=== PATIENT | male | born 1980 | race African-American/Black ===

== ENCOUNTER 2017-05-08 00:38 | Emergency (ER) | payer OTHER ==
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
[2017-05-08] MEDS ORDERED: SODIUM CHLORIDE 1,000 ML IV STA (01:11)
[2017-05-08] MEDS ORDERED: ACETAMINOPHEN 1000 MG/100 ML VIAL (NON FORMULARY) IVPB ONE (01:28)
[2017-05-08 01:29] LABS: BASOPHIL 0.5 % (0-2.0); EOSINOPHIL 0.7 % (0-4.5); MCHC 32.3 g/dl (32.0-35.9); MEAN CELL VOLUME 80.5 fl (80-96); MEAN PLT VOLUME 8.8 fl (7.5-11.1); NEUTROPHILS 50.9 % (42.8-82.8); PLATELET COUNT 171 K/MM3 (134-434); RDW 16.1 % (11.9-15.9); WHITE BLOOD COUNT 4.5 K/mm3 (4.0-10.0)
[2017-05-08] MEDS ORDERED: ACETAMINOPHEN INJECTION 100 ML IVPB ONE (01:30)
[2017-05-08] MEDS ORDERED: morphine CARPU-JECT 2 MG/1 ML DISP.SYRIN IVPUSH ONE (01:48)
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
[2017-05-08 01:55] LABS: ALBUMIN 3.9 g/dl (3.4-5.0); ANION GAP 11 (8-16); CALCIUM 9.2 mg/dL (8.5-10.1); CO2 28 mmol/L (21-32); CREATININE 1.3 mg/dL (0.7-1.3); GLUCOSE,RANDOM 123 mg/dL (74-106); SGOT/AST 18 U/L (15-37); SGPT/ALT 20 U/L (12-78)
[2017-05-08 01:57] LABS: ALK PHOS 54 U/L (45-117); BILIRUBIN,TOTAL 0.9 mg/dL (0.2-1.0); TOT PROT 7.1 g/dl (6.4-8.2)
[2017-05-08] MEDS ORDERED: morphine CARPU-JECT 4 MG/1 ML DISP.SYRIN ONE (02:28)
[2017-05-08 03:38] VITALS: TEMP 98.7; BMI 21.9
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
[2017-05-08 10:46] VITALS: BP 125/62; PULSE 75
--- NOTE | 2017-05-10 10:49 | EKG ---
Test Reason : Blood Pressure : / mmHG Vent. Rate : 075 BPM Atrial Rate : 075 BPM P-R Int : 142 ms QRS Dur : 086 ms QT Int : 378 ms P-R-T Axes : 069 078 031 degrees QTc Int : 422 ms NORMAL SINUS RHYTHM WITH SINUS ARRHYTHMIA NORMAL ECG WHEN COMPARED WITH ECG OF 07-OCT-2016 14:39, NO SIGNIFICANT CHANGE WAS FOUND Confirmed by JUANA FRASER MD ([id number]) on 05/10/2017 10:48:33 AM Referred By: Confirmed By:JUANA FRASER MD
== END 2017-05-08 10:48 | disposition home or self-care (01) ==
LOC: JER 00:38
PROC: 2W3MX1Z Immobilization of Left Lower Extremity using Splint (ICD-10-PCS; principal; 2017-05-08)
DX: G40.89 Other seizures (principal)
CPT/HCPCS: 36415; 70450-TC; 71010-TC; 73560-TC-LT; 80053; 85025; 93005; 93010; 99283-25

== ENCOUNTER 2017-06-01 05:06 | Day surgery (SDC) | payer OTHER ==
[2017-05-28 11:07] VITALS: BMI 23.8
--- NOTE | 2017-06-01 11:37 | HP ---
Satellite [facility] - Chief Complaint Chief Complaint: left knee pain/instability - Past Medical History Allergies/Adverse Reactions: Allergies Allergy/AdvReac Type Severity Reaction Status Date / Time No Known Allergies Allergy Verified 05/08/17 04:46 - Current Medications Current Medications: Home Medications Medication Instructions Recorded Oxycodone HCl/Acetaminophen 1 - 2 tab PO Q6H #50 tab MDD 8 06/01/17 [Percocet 5-325 mg Tablet -] Satellite Physical Exam - Physical Examination Vital Signs: Vital Signs Period Temp Pulse Resp BP Sys/Montoya Pulse Ox Last 24 Hr 98 General Appearance: Well Nourished, Well Developed, Alert & Oriented x3 ENT: Clear Lung: Normal air movement Heart: Regular rate & rhythm Extremities: Other (left knee- healed surgical scars, + swelling, + nikolai, + ant draw. + pivot, nvi MRI + re-rupture ACL) Neurological: Intact, Alert, Oriented Satellite Impression/Plan - Impression/Plan Impression: left knee ACL re-rupture- previous ACL reconstruction Operative Procedure: left knee arthroscopy with ACL reconstruction using allograft Date to be Performed: 06/01/17
[2017-06-01] MEDS ORDERED: ROPIVACAINE HCL 0.5% 30ML VIAL ONE (11:40)
[2017-06-01] MEDS ORDERED: MIDAZOLAM HCL 2 MG/2 ML SINGLE DOSE VIAL ONE ×2 (11:41)
[2017-06-01] MEDS ORDERED: ONDANSETRON 4 MG/2 ML VIAL ONE (12:21)
[2017-06-01] MEDS ORDERED: KETOROLAC TROMETHAMINE 30 MG/1 ML VIAL ONE (12:21)
[2017-06-01] MEDS ORDERED: DEXAMETHASONE SOD PHOSPHATE 4 MG/1 ML VIAL ONE (12:21)
[2017-06-01] MEDS ORDERED: ceFAZolin SODIUM 1 GM VIAL ONE ×2 (12:21→17:21)
[2017-06-01] MEDS ORDERED: LIDOCAINE HCL/PF 2% SDV 5ML VIAL ONE (12:21)
[2017-06-01] MEDS ORDERED: ceFAZolin SODIUM 1 GM VIAL IVPB ONE (12:44)
--- NOTE | 2017-06-01 13:59 | OP ---
Operative Note - Note: Operative Date: 06/01/17 ([facility]) Pre-Operative Diagnosis: left knee acl rupture Operation: left knee arthroscopy with revision ACL reconstruction using allograft, PMM Implants: arthrex graftlink Post-Operative Diagnosis: Same as Pre-op Surgeon: Gurdeep Tucker Rolled Glass Crosscutter: Shay Ramírez Anesthesiologist/ADDRESS CHANGE CLERK: Toby Madison Anesthesia: General, Local Specimens Removed: shavings Estimated Blood Loss (mls): 5 Operative Report Dictated: Yes
[2017-06-01] MEDS ORDERED: MEPERIDINE HCL CARPU-JECT 25 MG/1 ML DISP.SYRIN ONE (14:01)
[2017-06-01] MEDS ORDERED: PROMETHAZINE HCL 25 MG/1 ML VIAL IVPUSH PRN (14:07)
[2017-06-01] MEDS ORDERED: ONDANSETRON 4 MG/2 ML VIAL IVPUSH PRN (14:07)
[2017-06-01] MEDS ORDERED: LACTATED RINGERS SOLUTION 1,000 ML IV SCH (14:15)
[2017-06-01] MEDS ORDERED: HYDROmorphone HCL CARPU-JECT 2 MG/1 ML DISP.SYRIN ONE (14:17)
[2017-06-01] MEDS: HYDROmorphone HCL CARPU-JECT 1 MG/1 ML DISP.SYRIN IVPUSH PRN ×2 (14:25→14:30)
[2017-06-01] MEDS ORDERED: CEFAZOLIN 1 GM in DEXTROSE 5%-WATER - 50 ML IVPB ONE (14:31)
--- NOTE | 2017-06-01 15:18 | OP ---
DATE OF OPERATION: 06/01/2017 PREOPERATIVE DIAGNOSIS: Recurrent left anterior cruciate ligament tear. POSTOPERATIVE DIAGNOSES: Recurrent left anterior cruciate ligament tear. Lateral meniscus tear. PROCEDURES: Arthroscopic left anterior cruciate ligament reconstruction with allograft and partial lateral meniscectomy. SURGICAL ATTENDING: Gurdeep Tucker MD CRAWLER TRACTOR OPERATOR: SIMONE Hernandez ANESTHESIA: Regional and general. CLOSURE: A GraftLink for the ACL and 3-0 nylon for skin. ESTIMATED BLOOD LOSS: Negligible. COMPLICATIONS: None. CONDITION: Stable. DESCRIPTION OF PROCEDURE: The patient was taken to the operating room on June 01, 2017. General and regional anesthesia was administered by the anesthesiologist. IV Kefzol was administered prophylactically prior to the case. The left lower extremity was prepped and draped in the usual sterile fashion. The superomedial and medial lateral infrapatellar portal sites were made with a 15 blade blunt trocar. Outflow portal was superomedial. Working portal was inframedially and the scope was infralaterally. The scope was placed up into the pouch. The pouch was visualized to be clean. The medial and lateral gutters were visualized to be clean. The undersurface of the patella and trochlea were visualized to be intact with valgus stress on the knee. The medial compartment was entered. The medial meniscus was visualized, probed, and found to be intact. The medial femoral condyle was run and found to be intact, as was the medial tibial plateau. In the figure-of-4 position, the lateral compartment was entered. The lateral meniscus was found to have a complex tear of its midportion. This was debrided back to more stable meniscal tissue with an endoscopic biter and arthroscopic shaver. Lateral femoral condyle was run and found to be intact, as was the lateral tibial plateau. At 90 degrees, the ACL was visualized to be completely torn. It was debrided. A sufficient notchplasty was performed. I performed the procedure to gain acces to the posterior aspect of the notch. The previous femoral screw was found to be in place, but was not impinging on anything. It was left in situ. An [id number] guide was used to drill from the anterolateral aspect of the lateral femoral condyle into the knee joint just in the posterolateral aspect of the notch. The FlipCutter was then used to drill a 10-mm tunnel retrograde, leaving the lateral cortex intact. All bone fragments were removed. A FiberStick was used to pass a shuttle suture down this tunnel and exiting the anterolateral portal. The tibial guide was then used to drill a wire from the anteromedial proximal tibia into the knee just anterior to the PCL. The FlipCutter was used to make a 10-mm tunnel, leaving the lateral cortex intact. In this region was found a retained wire from the previous surgery. It was imbedded in the bone. The part that was impinging on the surgery was broken off and the rest of the wire was left in situ. A shuttle suture was placed down this tunnel, exiting the anteromedial portal. The shuttle sutures were then used to deploy the GraftLink into the knee through the anteromedial portal, pulling the femoral limb up into the femoral tunnel and the tibial limb into the tibial tunnel. The button engaged lateral cortex of the femur and then the graft was toggled up into place. The femoral tunnel was then toggled down with a button on the anteromedial proximal tibia in extension. The knee was taken through a range of motion and found to have good stability throughout. The toggle sutures were cut flush. The portals were all closed with 3-0 nylon, as were the stab incisions. A sterile pressure dressing was applied. The patient was awakened from anesthesia and transferred to the recovery room in stable condition. GURDEEP TUCKER M.D. [id number]
[2017-06-01 17:33] VITALS: TEMP 97.9
[2017-06-01 19:44] VITALS: BP 136/80; PULSE 71
--- NOTE | 2017-06-05 13:49 | PATH ---
Surgical Pathology Report Patient Name: TERRIE [facility]. Rec. #: [id number] /Age/Gender: 1980 (Age: 37) / M Account: [id number] Location: [facility] SUR[facility]ICAL Taken: 06/01/2017 Received: 06/04/2017 Reported: 06/05/2017 Physicians: Gurdeep Tucker M.D. Specimen(s) Received SHAVINGS Clinical History Left ACL tear Final Diagnosis KNEE, LEFT, ARTHROSCOPIC SHAVING: FIBROCARTILAGE WITH MYXOID DEGENERATIVE CHANGES, ALONG WITH PORTIONS OF SYNOVIUM, BONE AND HYALINE CARTILAGE. Electronically Signed Agusto Gonzalez M.D. Gross Description Received in formalin, labeled "left knee shavings," is a 5.0 x 3.5 x 0.6 cm. aggregate of morris-yellow soft tissue fragments. A medical billing representative portion is submitted in one cassette. /06/04/201706/04/2017
== END 2017-06-01 19:10 | disposition home or self-care (01) ==
LOC: JASU-SURG 05:06
PROVIDERS: ATTEND Orthopaedic Surgery
PROC: 0MUP4JZ Supplement Left Knee Bursa and Ligament with Synthetic Substitute, Percutaneous Endoscopic Approach (ICD-10-PCS; 2017-06-01)
PROC: 0SBD4ZZ Excision of Left Knee Joint, Percutaneous Endoscopic Approach (ICD-10-PCS; principal; 2017-06-01 12:30)
DX: S83.512A Sprain of anterior cruciate ligament of left knee, initial encounter (principal); S83.282A Other tear of lateral meniscus, current injury, left knee, initial encounter; X58.XXXA Exposure to other specified factors, initial encounter; Y93.9 Activity, unspecified; Y92.9 Unspecified place or not applicable; Y99.9 Unspecified external cause status
CPT/HCPCS: 88304-TC; 94760

== ENCOUNTER 2017-12-04 04:46 | Emergency (ER) | payer OTHER ==
--- NOTE | 2017-12-04 04:47 | PDOC ---
History of Present Illness - General Chief Complaint: Chest Pain Stated Complaint: SPASM Time Seen by Provider: 12/04/17 04:46 History Source: Patient - History of Present Illness Initial Comments: 12/04/17 05:15 37-year-old male complaining of chest pain, fast breathing with some numbness and tingling to bilateral hands. Patient reports that he woke up with the symptoms. Patient reports he has no chest pain at this time, but continues with tingling feeling to bilateral hands. One prior episode similar to this and patient was seen at [facility] with the negative workup. reports usual stress at work. 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 12/04/17 06:30 Past History - Past Medical History Allergies/Adverse Reactions: Allergies Allergy/AdvReac Type Severity Reaction Status Date / Time No Known Allergies Allergy Verified 12/04/17 04:57 Anemia: No Asthma: No Cancer: No Cardiac Disorders: No CVA: No COPD: No CHF: No Dementia: No Diabetes: No GI Disorders: No Disorders: No HTN: No Hypercholesterolemia: No Liver Disease: No Seizures: Yes (last month "drinking") Thyroid Disease: No - Surgical History Orthopedic Surgery: Yes (left ACL) - Suicide/Smoking/Psychosocial Hx Smoking History: Former smoker Have you smoked in the past 12 months: No If you are a former smoker, when did you quit?: 10 years Hx Alcohol Use: No Drug/Substance Use Hx: No Substance Use Type: None Hx Substance Use Treatment: No Cardiac Specific PMH - Complaint Specific PMHX Pacemaker: No Review of Systems - Review of Systems Able to Perform ROS?: Yes Is the patient limited [place] proficient: No Cardiac (ROS): Yes: Chest Pain ABD/GI: No: Symptoms Reported, See HPI, Abdominal Distended, Abd. Pain w/ defecation, Blood Streaked Bowels, Constipated, Diarrhea, Difficulty Swallowing , Nausea, Poor Appetite, Poor Fluid Intake, Rectal Bleeding, Vomiting, Indigestion, Abdominal cramping, Tarry Stools, Other *Physical Exam - Vital Signs Last Vital Signs Temp Pulse Resp BP Pulse Ox 98.1 F 59 L 18 122/85 100 12/04/17 04:53 12/04/17 04:53 12/04/17 04:53 12/04/17 04:53 12/04/17 04:53 - Physical Exam General Appearance: Yes: Appropriately Dressed Respiratory/Chest: positive: Lungs Clear, Normal Breath Sounds. negative: Chest Tender Cardiovascular: positive: Regular Rhythm, Regular Rate Gastrointestinal/Abdominal: positive: Normal Bowel Sounds, Soft Extremity: positive: Normal Capillary Refill, Normal Inspection, Normal Range of Motion Integumentary: positive: Normal Color, Dry Neurologic: positive: Fully Oriented, Alert ED Treatment Course - LABORATORY CBC & Chemistry Diagram: 12/04/17 05:25 12/04/17 05:25 - ADDITIONAL ORDERS Additional order review: Laboratory Results 12/04/17 12/04/17 05:25 05:25 PT with INR 11.20 INR 0.99 Sodium 142 Potassium 4.1 Chloride 104 Carbon Dioxide 27 Anion Gap 11 BUN 19 H D Creatinine 1.3 Creat Clearance w eGFR > 60 Random Glucose 93 Calcium 8.9 Magnesium 2.4 Total Bilirubin 0.7 D AST 16 ALT 12 Alkaline Phosphatase 54 Creatine Kinase 430 H Troponin I < 0.02 Total Protein 6.9 Albumin 3.6 12/04/17 05:25 RBC 5.33 MCV 79.8 L MCHC 32.1 RDW 16.0 H MPV 8.8 Neutrophils % 59.0 Lymphocytes % 30.9 Monocytes % 8.6 Eosinophils % 0.9 Basophils % 0.6 - RADIOLOGY Radiology Studies Ordered: Category Date Time Status CHEST PA & LAT [RAD] Stat Radiology 12/04/17 05:12 Taken - Medications Given in the ED: ED Medications Discontinued Medications Generic Name Dose Route Start Last Admin Trade Name Freq PRN Reason Stop Dose Admin Aspirin 162 mg 12/04/17 05:12 12/04/17 05:27 Asa - PO 12/04/17 05:13 162 mg ONCE ONE Administration Progress Note - Progress Note Progress Note: A: chest pain will r/o cardiac cause P: cbc cmp cardiac enzymes EKG: Sinus bradycardia chest xray: negative *DC/Admit/Observation/Transfer Diagnosis at time of Disposition: Chest pain of unknown etiology, Panic attack - Discharge Dispostion Disposition: HOME - Referrals Referrals: Louis Zuniga MD [Primary Care Provider] - Call tomorrow - Patient Instructions Printed Discharge Instructions: DI for Atypical Chest Pain Additional Instructions: follow up with your doctor as soon as possible. drink plenty of fluids. return to the ER if symptoms worsen. - Post Discharge Activity
[2017-12-04] MEDS ORDERED: ASPIRIN 81 MG CHEWABLE TABLETS PO ONE (05:12)
[2017-12-04 05:13] VITALS: BP 122/85; PULSE 59; TEMP 98.1; BMI 53.8
[2017-12-04] MEDS ORDERED: ASPIRIN COATED 81 MG TABLET.EC ONE (05:23)
[2017-12-04 05:38] LABS: BASO % 0.6 % (0-2.0); EOS % 0.9 % (0-4.5); HEMATOCRIT 42.6 % (35.4-49); HEMOGLOBIN 13.7 GM/dL (11.7-16.9); LYMPH % 30.9 % (8-40); MCH 25.6 pg (25.7-33.7); MCHC 32.1 g/dl (32.0-35.9); MEAN CELL VOLUME 79.8 fl (80-96); MEAN PLT VOLUME 8.8 fl (7.5-11.1); MONO % 8.6 % (3.8-10.2); PLATELET COUNT 179 K/MM3 (134-434); RBC 5.33 M/mm3 (4.00-5.60); WHITE BLOOD COUNT 7.7 K/mm3 (4.0-10.0)
[2017-12-04 05:52] LABS: INR 0.99 (0.82-1.09); PROTHROMBIN TIME (PATIENT) 11.2 SEC (9.98-11.88)
[2017-12-04 06:14] LABS: ALBUMIN 3.6 g/dl (3.4-5.0); ANION GAP 11 (8-16); BILIRUBIN,TOTAL 0.7 mg/dL (0.2-1.0); BLOOD UREA NITROGEN 19 mg/dL (7-18); CALCIUM 8.9 mg/dL (8.5-10.1); CHLORIDE 104 mmol/L (98-107); CO2 27 mmol/L (21-32); CREATININE 1.3 mg/dL (0.7-1.3); GLUCOSE,RANDOM 93 mg/dL (74-106); MAGNESIUM 2.4 mg/dL (1.8-2.4); POTASSIUM 4.1 mmol/L (3.5-5.1); SGOT/AST 16 U/L (15-37); SGPT/ALT 12 U/L (12-78); SODIUM 142 mmol/L (136-145); TOT PROT 6.9 g/dl (6.4-8.2)
[2017-12-04 06:17] LABS: ALK PHOS 54 U/L (45-117)
--- NOTE | 2017-12-04 11:28 | EKG ---
Test Reason : Blood Pressure : / mmHG Vent. Rate : 054 BPM Atrial Rate : 054 BPM P-R Int : 156 ms QRS Dur : 084 ms QT Int : 424 ms P-R-T Axes : 073 074 043 degrees QTc Int : [address] ELEVATION, CONSIDER EARLY REPOLARIZATION BORDERLINE ECG WHEN COMPARED WITH ECG OF 08-MAY-2017 00:46, NO SIGNIFICANT CHANGE WAS FOUND Confirmed by MD Julio, Yung ([id number]) on 12/04/2017 11:28:13 AM Referred By: Confirmed By:Yung Kim MD
== END 2017-12-04 06:30 | disposition home or self-care (01) ==
LOC: JER 04:46
DX: F41.0 Panic disorder [episodic paroxysmal anxiety] (principal)
CPT/HCPCS: 36415; 71046-TC-FY; 80053; 82550; 82553; 83735; 84484; 85025; 85610; 93005; 93010; 99281-25

== ENCOUNTER 2019-08-22 06:06 | Emergency (ER) | payer OTHER ==
[2019-08-22 06:35] VITALS: TEMP 98.2; BMI 52.0
--- NOTE | 2019-08-22 07:10 | PDOC ---
History of Present Illness - General Chief Complaint: Chest Pain Stated Complaint: PAIN,SORE THROAT Time Seen by Provider: 08/22/19 07:10 History Source: Patient Exam Limitations: No Limitations - History of Present Illness Initial Comments: 39 year old male with no PMH presented to ED for chest pain x2 days. Pt reported his pain is intermittent, pressure/squeezing, lasting hours at a time, no alleviating or aggravating factors, no radiation. Pt also describes a sensation in his throat and dry cough. Pt denied fever, nausea, vomiting, diarrhea, abdominal pain, lower extremity swelling, shortness of breath, palpitations. Pt reported x2 weeks ago he was in [place] partying and was " smoking a lot", when asked specifically what he was smoking he stated "I honestly don't know, probably marijuana". ROS General: denied fever, chills, generalized weakness. HEENT: admitted to throat sensation. denied sore throat, rhinorrhea, ear pain. Cardiovascular: admitted to chest pain. denied palpitations, syncope, diaphoresis. Respiratory: admitted to cough. denied shortness of breath, sputum production, hemoptysis. Gastrointestinal: denied abdominal pain, nausea, vomiting, diarrhea, constipation, blood in stool. Genitourinary: denied dysuria, increased urinary frequency, hematuria, urinary incontinence, flank pain. Back: denied back pain. Musculoskeletal: denied joint pain, muscle pain, joint swelling. Neurological: denied headache, dizziness, numbness, tingling, weakness. Integumentary: denied rash, laceration, abrasion. Hematologic/Lymphatic: denied bruising or bleeding. PE Constitutional: Well-nourished, Well-developed, appearing stated age. HEENT: head is normocephalic, atraumatic. EOMI. PERRLA. no posterior pharyngeal erythema. no tonsillar swelling or exudates bilaterally. uvula midline. no peritonsillar swelling, tenderness or abscess. no jaw tenderness or misalignment. Neck: supple. Full ROM. Cardiovascular: regular heart rhythm. no murmurs. no pericardial friction rub. Respiratory: clear to auscultation bilaterally. no crackles, rhonchi or wheezing. no stridor. Gastrointestinal: soft, nontender. normal bowel sounds. no rebound, guarding, masses. Extremities: peripheral pulses intact. no lower extremity edema. Neurological: CN 2-12 grossly intact. moves all four extremities. Psych: awake, alert, oriented x3. follows commands. answers questions appropriately Past History - Past Medical History Allergies/Adverse Reactions: Allergies Allergy/AdvReac Type Severity Reaction Status Date / Time No Known Allergies Allergy Verified 08/22/19 06:30 Seizures: Yes (last month "drinking") - Surgical History Orthopedic Surgery: Yes (left ACL) - Psycho Social/Smoking Cessation Hx Smoking History: Current some day smoker Have you smoked in the past 12 months: No If you are a former smoker, when did you quit?: 10 years Information on smoking cessation initiated: Yes Hx Alcohol Use: Yes (occassionally) Drug/Substance Use Hx: Yes (polysubstance abuse) Substance Use Type: None Hx Substance Use Treatment: No *Physical Exam - Vital Signs Last Vital Signs Temp Pulse Resp BP Pulse Ox 98.2 F 81 18 125/92 99 08/22/19 06:25 08/22/19 06:25 08/22/19 06:25 08/22/19 06:25 08/22/19 06:26 ED Treatment Course - LABORATORY CBC & Chemistry Diagram: 08/22/19 07:30 08/22/19 07:30 - RADIOLOGY Chest X-Ray Result: Other (Name: [facility] Phys: Cara Langston RESIDENT : 1980 Age: 39 Sex: M [facility] Acct: [id number] Loc: [address] Exam Date: Status: [place] [address] Unit Number: [id number] EXAM#: TYPE/EXAM: RESULT: [id number] RAD/ CHEST PA LAT Chest: Substernal pain. 2 views of the chest reveal clear lungs, normal mediastinum and sharp angles. The bones and soft tissues are intact. Since 12/04/2017 there is no change of an adverse nature. Impression: No acute chest pathology. Reported By: Eddie Nguyen MD 08/22/19 0802) Medical Decision Making - Medical Decision Making 39 year old male with above PMH presented to ED for chest pain associated with throat "sensation" and dry cough x2 days. Initial Vital Signs Temp Pulse Resp BP Pulse Ox 98.2 F 81 18 125/92 98 08/22/19 06:25 08/22/19 06:25 08/22/19 06:25 08/22/19 06:25 08/22/19 06:25 Afebrile. No tachycardia. No tachypnea. No hypertension. No hypoxia on room air. Labs ordered: Imaging ordered: CXR Medications ordered: pepcid, ibuprofen 600 mg PO once, normal saline bolus 1000 cc once EKG performed at 0629: rate 64, regular rhythm, normal axis, normal intervals, no acute ST changes. CXR report: Name: [facility] Phys: Cara Langston RESIDENT : 1980 Age: 39 Sex: M [facility] Acct: [id number] Loc: [address] Exam Date: 08/22/19 Status[place] [id number] Unit Number: [id number] EXAM#: TYPE/EXAM: RESULT: [id number] RAD/CHEST PA LAT Chest: Substernal pain. 2 views of the chest reveal clear lungs, normal mediastinum and sharp angles. The bones and soft tissues are intact. Since 12/04/2017 there is no change of an adverse nature. Impression: No acute chest pathology. Reported By: Eddie Nguyen MD 08/22/19 0802 08/22/19 08:12 CBC WBC 6.9 K/mm3 (4.0-10.0) 08/22/19 07:30 RBC 5.80 M/mm3 (4.00-5.60) H 08/22/19 07:30 Hgb 15.2 GM/dL (11.7-16.9) 08/22/19 07:30 Hct 47.1 % (35.4-49) 08/22/19 07:30 MCV 81.2 fl (80-96) 08/22/19 07:30 MCH 26.1 pg (25.7-33.7) 08/22/19 07:30 MCHC 32.2 g/dl (32.0-35.9) 08/22/19 07:30 RDW 16.9 % (11.9-15.9) H 08/22/19 07:30 Plt Count 208 K/MM3 (134-434) 08/22/19 07:30 MPV 8.7 fl (7.5-11.1) 08/22/19 07:30 Absolute Neuts (auto) 4.3 K/mm3 (1.5-8.0) 08/22/19 07:30 Neutrophils % 61.6 % (42.8-82.8) 08/22/19 07:30 Lymphocytes % 28.3 % (8-40) 08/22/19 07:30 Monocytes % 9.0 % (3.8-10.2) 08/22/19 07:30 Eosinophils % 0.6 % (0-4.5) 08/22/19 07: Basophils % 0.5 % (0-2.0) 08/22/19 07:30 Nucleated RBC % 0 % (0-0) 08/22/19 07:30 No leukocytosis. No anemia. 08/22/19 08:25 Pt requesting rapid HIV testing and urine GC/Chlamydia testing. Above ordered. 08/22/19 08:38 CMP Sodium 141 mmol/L (136-145) 08/22/19 07:30 Potassium 4.2 mmol/L (3.5-5.1) 08/22/19 07:30 Chloride 108 mmol/L (98-107) H 08/22/19 07:30 Carbon Dioxide 28 mmol/L (21-32) 08/22/19 07:30 Anion Gap 6 MMOL/L (8-16) L 08/22/19 07:30 BUN 18.0 mg/dL (7-18) 08/22/19 07:30 Creatinine 1.2 mg/dL (0.55-1.3) 08/22/19 07:30 Est GFR (CKD-EPI)AfAm 89.00 08/22/19 07:30 Est GFR (CKD-EPI)NonAf 76.79 08/22/19 07:30 Random Glucose 96 mg/dL (74-106) 08/22/19 07:30 Calcium 9.0 mg/dL (8.5-10.1) 08/22/19 07:30 Magnesium 2.5 mg/dL (1.8-2.4) H 08/22/19 07:30 Total Bilirubin 1.0 mg/dL (0.2-1) 08/22/19 07:30 AST 14 U/L (15-37) L 08/22/19 07:30 ALT 16 U/L (13-61) 08/22/19 07:30 Alkaline Phosphatase 57 U/L (45-117) 08/22/19 07:30 Troponin I < 0.02 ng/ml (0.00-0.05) 08/22/19 07:30 Total Protein 7.2 g/dl (6.4-8.2) 08/22/19 07:30 Albumin 3.9 g/dl (3.4-5.0) 08/22/19 07:30 Lipase 119 U/L (73-393) 08/22/19 07:30 No electrolyte abnormalities. No ADDY. No transaminitis. Troponin wnl. Lipase wnl. Pt reported improvement of symptoms. Pt reported he feels comfortable going home. Rapid HIV negative. Pt discharged. Discharge - Discharge Information Problems reviewed: Yes Clinical Impression/Diagnosis: Chest pain, Negative laboratory testing for HIV Condition: Improved Disposition: HOME - Admission No - Follow up/Referral Referrals: Louis Zuniga MD [Primary Care Provider] - - Patient Discharge Instructions Additional Instructions: Follow up with your primary care doctor within 3 days regarding your Emergency Room visit. Return to the Emergency Department for increasing pain, shortness of breath, vomiting, fever, severe back pain, increasing pain, or any other new, worsening or concerning symptoms. Your urine gonorrhea/chlamydia testing will return in a couple of days. You will be called if the results are positive. Your screening HIV testing was negative. If this is a concern for you, then you should follow up at the [facility] for repeat testing at 30 days, 3 months, and 6 months. - Post Discharge Activity Work/Back to School Note: Back to Work, HIV Follow [facility]
[2019-08-22] MEDS ORDERED: IBUPROFEN 600 MG TABLET (FP) PO ONE ×2 (07:20→07:31)
[2019-08-22] MEDS ORDERED: FAMOTIDINE 20 MG/50 ML IVPB 20 MG/50 ML MG IVPB ONE ×2 (07:20→07:32)
[2019-08-22] MEDS ORDERED: SODIUM CHLORIDE 1,000 ML IV STA (07:20)
--- NOTE | 2019-08-22 07:42 | PDOC ---
Attending Attestation - Resident Resident Name: Cara Langston - ED Attending Attestation I have performed the following: I have examined & evaluated the patient, The case was reviewed & discussed with the resident, I agree w/resident's findings & plan, Exceptions are as noted - HPI HPI: 08/22/19 09:34 39 years old with no significant past medical history presents to the emergency department with 2-day history of intermittent nonexertional nonradiating substernal chest discomfort. Patient recently returned from [place] after several days of partying denies IV drug use or cocaine use - Physicial Exam PE: 08/22/19 09:35 Vitals: Triage Vital signs reviewed General Appearance: No acute distress, well nourished well developed, Head: Atraumatic, Cardiac: Regular rate and rhythym, no murmurs, no rubs, no gallops, Lungs: Clear to auscultation bilateral, good air movement bilaterally, Abdomen: Soft, non distended, normal bowel sounds, Extremities: Full range of motion to all extremities, no cyanosis, clubbing, or edema Skin: Warm and dry, no rashes or lesions, no rash, no petechiae Psych: Normal mood, normal affect - Medical Decision Making 08/22/19 12:51 Nonischemic EKG troponin negative Patient well-appearing heart score 1 Findings, need for follow-up and strict return instructions discussed with patient. Heart Score/ECG Review - ECG Impressions Comment:: 08/22/19 09:35 39 years old with atypical chest discomfort nonischemic EKG We will check troponin Patient also requesting STD check
[2019-08-22 07:52] LABS: BASO % 0.5 % (0-2.0); EOS % 0.6 % (0-4.5); HEMATOCRIT 47.1 % (35.4-49); HEMOGLOBIN 15.2 GM/dL (11.7-16.9); LYMPH % 28.3 % (8-40); MCH 26.1 pg (25.7-33.7); MCHC 32.2 g/dl (32.0-35.9); MEAN CELL VOLUME 81.2 fl (80-96); MEAN PLT VOLUME 8.7 fl (7.5-11.1); NEUT % 61.6 % (42.8-82.8); PLATELET COUNT 208 K/MM3 (134-434); RDW 16.9 % (11.9-15.9); WHITE BLOOD COUNT 6.9 K/mm3 (4.0-10.0)
[2019-08-22 08:18] LABS: ALBUMIN 3.9 g/dl (3.4-5.0); ALK PHOS 57 U/L (45-117); ANION GAP 6 MMOL/L (8-16); CHLORIDE 108 mmol/L (98-107); CO2 28 mmol/L (21-32); CREATININE 1.2 mg/dL (0.55-1.3); GLUCOSE,RANDOM 96 mg/dL (74-106); LIPASE 119 U/L (73-393); MAGNESIUM 2.5 mg/dL (1.8-2.4); POTASSIUM 4.2 mmol/L (3.5-5.1); SGOT/AST 14 U/L (15-37); SGPT/ALT 16 U/L (13-61); SODIUM 141 mmol/L (136-145); TOT PROT 7.2 g/dl (6.4-8.2)
[2019-08-22 09:33] VITALS: BP 112/66; PULSE 65
--- NOTE | 2019-08-22 13:22 | EKG ---
Test Reason : Blood Pressure : / mmHG Vent. Rate : 064 BPM Atrial Rate : 064 BPM P-R Int : 128 ms QRS Dur : 080 ms QT Int : 394 ms P-R-T Axes : 057 072 045 degrees QTc Int : 406 ms NORMAL SINUS RHYTHM WHEN COMPARED WITH ECG OF 04-DEC-2017 04:55, NO SIGNIFICANT CHANGE WAS FOUND Confirmed by KRIS LUIS MD ([id number]) on 08/22/2019 1:22:47 PM Referred By: Confirmed By:KRIS LUIS MD
== END 2019-08-22 11:09 | disposition home or self-care (01) ==
LOC: JER 06:06
PROC: 3E033GC Introduction of Other Therapeutic Substance into Peripheral Vein, Percutaneous Approach (ICD-10-PCS; principal; 2019-08-22)
DX: Z11.4 Encounter for screening for human immunodeficiency virus [HIV] (principal); F17.210 Nicotine dependence, cigarettes, uncomplicated
CPT/HCPCS: 36415; 71046-TC-FY; 80053; 83690; 83735; 84484; 85025; 87389; 87491; 87591; 93005; 93010; 99285-25; J7030

== ENCOUNTER 2021-03-22 20:41 | Emergency (ER) | payer OTHER ==
[2021-03-22 20:57] VITALS: BMI 24.5
[2021-03-22] MEDS ORDERED: ACETAMINOPHEN 500 MG TABLET (FP) PO ONE (21:15)
[2021-03-22] MEDS ORDERED: ACETAMINOPHEN 500 MG TABLET (FP) ONE (21:17)
[2021-03-22 22:59] VITALS: BP 139/86; PULSE 89; TEMP 98.9
== END 2021-03-22 22:52 | disposition home or self-care (01) ==
LOC: JER 20:41
DX: R05 Cough (principal); R50.9 Fever, unspecified; Z11.52 Encounter for screening for COVID-19
CPT/HCPCS: 71046-TC-FY; 87880; 99284-25; C9803; U0003; U0005

== ENCOUNTER 2024-01-20 17:58 | Emergency (ER) | payer OTHER ==
[2024-01-20 18:06] VITALS: BP 124/78; PULSE 92; RESP 18; TEMP 98; BMI 26.0
[2024-01-20] MEDS ORDERED: ACETAMINOPHEN 500 MG TABLET (FP) ONE (19:41)
[2024-01-20] MEDS ORDERED: IBUPROFEN 600 MG TABLET (FP) PO ONE (19:41)
[2024-01-20] MEDS: IBUPROFEN 600 MG TABLET (FP) PO ONE (19:48)
[2024-01-20] MEDS: ACETAMINOPHEN 500 MG TABLET (FP) PO ONE (19:48)
== END 2024-01-20 19:50 | disposition home or self-care (01) ==
LOC: JERFT 17:58
PROC: 2W3JX1Z Immobilization of Right Finger using Splint (ICD-10-PCS; principal; 2024-01-20)
DX: S63.256A Unspecified dislocation of right little finger, initial encounter (principal); X50.1XXA Overexertion from prolonged static or awkward postures, initial encounter; Y93.67 Activity, basketball
CPT/HCPCS: 73130-TC-RT-FY; 99283-25